=== PATIENT | male | born 1960 | race Caucasian/White ===

== ENCOUNTER → 2020-03-09 | Day surgery (SDC) | payer OTHER ==
[~2020-03-09] MED LIST: Dexamethasone 20 MG/5 ML VIAL ONE; Ketorolac Tromethamine 30 MG/ML VIAL ONE; Lidocaine 1% PF 5 ML VIAL ONE; Ondansetron PF 4 MG/2 ML Vial ONE; PHENYLEPHRINE-NS 100 MCG/ML 10 ML SYRINGE ONE; PROPOFOL 200 MG/20 ML VIAL ONE; Succinylcholine 200 MG/10 ml SYRINGE FS ONE
--- NOTE | 2020-03-10 02:45 | CON ---
DATE OF CONSULTATION: 03/09/2020 REASON FOR CONSULTATION: Esophageal food bolus impaction. HISTORY OF PRESENT ILLNESS: Penelope Vásquez is a generally healthy 60-year-old man with no significant past medical history. He recalls having undergone a normal colonoscopy about 7 years ago, with 7- to 10-year followup recommended. He has never undergone EGD. His family history is unknown. He really does not have any chronic gastrointestinal symptoms other than intermittent dysphagia. This has been going on for about the past 2 years. Every few weeks to months, he will have an episode of varying severity in which he will feel as if solid food will hang up in the lower throat or upper chest transiently. Sometimes this can last for several seconds or even a few minutes, but had never lasted longer than that. He would occasionally regurgitate food back up and then do just fine, but today almost 10 hours ago at lunch time, he had his first bite of steak and felt it lodged in the lower throat, ever since then that sensation has not gone away and he has been unable to tolerate any intake since that time even liquids. He has been spitting his secretions into a bag. He presented to the outside emergency department where glucagon and nitroglycerin were tried without any efficacy. He has just been transferred to our emergency department. He denies any other symptoms. REVIEW OF SYSTEMS: Full review of systems including constitutional, head, eyes, ears, nose, throat, GI, , cardiovascular, respiratory, musculoskeletal, neurologic systems is negative except as noted in the HPI. PAST MEDICAL HISTORY: None. ALLERGIES: NO KNOWN DRUG ALLERGIES. OUTPATIENT MEDICATIONS: None. SOCIAL HISTORY: Alcohol use is rare. No smoking. No drug use. FAMILY HISTORY: Unknown. PHYSICAL EXAMINATION: GENERAL: 60-year-old man sitting up in the stretcher comfortably. Occasionally spitting into an emesis bag. SKIN: No jaundice or no rashes were palpable. EYES: No scleral icterus. Extraocular movements intact. ENT: Mucous membranes are moist. No oral lesions. LYMPHATICS: No submandibular or supraclavicular lymphadenopathy. THYROID: Nontender to palpation. HEART: Regular rate and rhythm. LUNGS: Clear to auscultation bilaterally. ABDOMEN: Bowel sounds present. Soft, nontender to palpation throughout. EXTREMITIES: No peripheral edema. VESSELS: Radial pulses 2+ bilaterally. NEUROLOGIC: Cranial nerves 2 through 12 intact bilaterally. No focal deficits. LABORATORY STUDIES: None. ASSESSMENT AND PLAN: 1. Esophageal food bolus impaction. 2. Chronic intermittent dysphagia. The fact that his dysphagia symptoms have been going on intermittently for a couple of years, is reassuring that this is likely a benign process such as peptic stricture, Schatzki ring, or eosinophilic esophagitis, etc. We do need to proceed with urgent EGD tonight for foreign body disimpaction and further assessment. I discussed with the patient that we may or may not perform esophageal dilation at the time of the procedure, depending on findings. Anticipate the patient will be able to be discharged home following the procedure. Thank you for the consultation. Please call anytime with questions or concerns. Job ID: [id number]
--- NOTE | 2020-03-10 02:57 | OP ---
DATE OF PROCEDURE: 03/09/2020 This is a GI endoscopy note. BASS SINGER SURGEON: None. PROCEDURE: Esophagogastroduodenoscopy with foreign body removal and esophageal biopsies. INDICATION: 1. Esophageal food bolus impaction. 2. Chronic intermittent dysphagia. MEDICATIONS: See Anesthesia record. FINDINGS: After discussion of the risks, benefits, and alternatives of the procedure, informed consent was obtained and witnessed. Pre-endoscopic cardiopulmonary examination was satisfactory. Time-out was performed before sedation was achieved. Sedation was achieved with Anesthesia assistance in the endoscopy unit under general anesthesia. The patient was placed in the left lateral decubitus position. A Pentax adult upper endoscope was placed into the oropharynx and passed through the cricopharyngeus under direct visualization. There are esophageal findings of diffuse narrowing edema, fibrosis, longitudinal furrows, and ringed esophagus throughout the entire length of the esophagus, all very suspicious for eosinophilic esophagitis. There is a large meat bolus impaction seen at 35 cm from the incisors. Multiple modalities were used to extract the food bolus, this was difficult due to the degree of narrowing of the esophagus, severe maceration of the mucosa in this area, and the friability of the meat bolus itself. We had to employ the rat-tooth forceps snare loop and [employer]. In this fashion, we were able to remove enough of the meat bolus piecemeal to gently nudged the rest of it down into the stomach. Further examination of the esophagus was then performed. Again, there is severe maceration from 35cm to 40 cm where the meat bolus was, but no significant hemorrhage. There is some resistance to endoscope passage through this area even after the meat bolus had been removed. Biopsies were obtained from the midesophagus to evaluate for possible eosinophilic esophagitis. Examination of the stomach with forward and retroflexed views was normal. The endoscope was passed through the pylorus and the first and second portions of the duodenum also appeared normal. The upper endoscope was then completely withdrawn and the patient allowed to recover. The patient tolerated the procedure well. There were no immediate postprocedure complications. IMPRESSION: 1. Large meat bolus from 35 cm to 40 cm, completely removed. 2. Diffuse esophageal narrowing, edema, fibrosis, longitudinal furrows, and rings, all suspicious for eosinophilic esophagitis. Biopsies obtained from the midesophagus. 3. Otherwise normal EGD. RECOMMENDATIONS: 1. Liquid diet for the next 2 days, then advance carefully to soft diet. 2. Chew food thoroughly. 3. We will start the patient on pantoprazole 40 mg by mouth twice daily. 4. Plan for GI clinic, followup in the next 2 to 3 weeks. At that time, we will assess his response to therapy, and likely consider repeating EGD on an outpatient basis for esophageal dilation. 5. Follow up pathology results on the esophageal biopsies. Job ID: [id number]
== END ==
LOC: SDC/OP 21:33 → ERS 21:33 → SDC/OP 21:33 → EDSTATUS 21:45
PROVIDERS: ATTEND Internal Medicine
PROC: 0DB58ZX Excision of Esophagus, Via Natural or Artificial Opening Endoscopic, Diagnostic (ICD-10-PCS; principal; 2020-03-09)
PROC: 0DC58ZZ Extirpation of Matter from Esophagus, Via Natural or Artificial Opening Endoscopic (ICD-10-PCS; principal; 2020-03-09)
DX: T18.128A Food in esophagus causing other injury, initial encounter (principal); K20.0 Eosinophilic esophagitis
CPT/HCPCS: 88305; 88312; 88313; J1100; J1885; J2405; J2704

== ENCOUNTER 2020-03-19 08:44 | Emergency (ER) | payer OTHER ==
[2020-03-19 09:27] LABS: #Lymphocytes 1.4 thou/uL (1.20-3.40); #Monocytes 0.8 thou/uL (0.11-0.59); #Neutrophils 6.2 thou/uL (1.40-6.50); %Basophils 0.1 % (0.0-1.0); %Eosinophils 0.1 % (0.0-10.0); %Lymphocytes 16.6 % (21.0-51.0); %Monocytes 9.1 % (0.0-10.0); %Neutrophils 74.1 % (42.0-75.0); Hemoglobin 13.8 g/dL (14.0-18.0); Mean Corpuscular HGB CONC 33.2 g/dL (32.0-36.0); Mean Corpuscular Hemoglobin 29.3 pg (27.0-31.0); Mean Corpuscular Volume 88.2 fL (78.0-98.0); Mean Platelet Volume 7.9 fL (7.4-10.4); Platelet Count 155 thou/uL (130-400); RBC Distribution Width 12.2 % (11.5-14.5); Red Blood Cell (RBC) Count 4.72 mill/uL (4.70-6.10); White Blood Cell (WBC) Count 8.4 thou/uL (4.8-10.8)
--- NOTE | 2020-03-19 09:35 | RAD ---
Chest AP view INDICATION: History of fever and cough COMPARISON: None FINDINGS: Lungs: There is airspace disease within the right lower lobe with patchy opacities within left midlu ng and left lower lobe. Cardiac silhouette: The cardiomediastinal silhouette appears within normal limits. Pulmonary vasculature: Normal Pleural spaces: No pleural effusion or pneumothorax is demonstrated. Upper abdomen: No abnormality seen. Osseous structures: No acute osseous abnormality. Additional findings: None. IMPRESSION: Bilateral pneumonia.
[2020-03-19 09:47] LABS: ALT (SGPT) 25 U/L (8-55); AST (SGOT) 27 U/L (5-34); Alkaline Phosphatase 84 U/L (40-110); Anion Gap 14 mmol/L (10-20); BUN (Urea Nitrogen) 15 mg/dL (8.4-25.7); Bilirubin, Total 0.4 mg/dL (0.2-1.2); Calc. Creatinine Clearance 0 mL/min (70-130); Calcium 8.5 mg/dL (7.8-10.44); Carbon Dioxide 24 mmol/L (22-29); Chloride 104 mmol/L (98-107); Globulin 3.6 g/dL (2.4-3.5); Glucose 109 mg/dL (70-105); Potassium 3.9 mmol/L (3.5-5.1); Protein, Total 7.6 g/dL (6.0-8.3); Sodium 138 mmol/L (136-145)
[2020-03-19 11:46] LABS: SARS-CoV-2 NAA Rapid Test DETECTED (NotDetected)
== END 2020-03-19 12:00 | disposition home or self-care (01) ==
LOC: ERS 08:44
DX: U07.1 COVID-19 (principal); Z79.899 Other long term (current) drug therapy
CPT/HCPCS: 0240U; 71045; 80053; 84484; 85025